=== PATIENT | female | born 1955 | race Caucasian/White ===

== ENCOUNTER 2017-06-06 03:45 | Emergency (ER) | payer OTHER ==
[2017-06-06 04:15] VITALS: BP 126/63; PULSE 67; TEMP 97.6; BMI 23.0
[2017-06-06] MEDS ORDERED: ACETAMINOPHEN 325 MG TABLET (FP) PO ONE (08:45)
[2017-06-06] MEDS ORDERED: ACETAMINOPHEN 325 MG TABLET (FP) ONE (08:48)
--- NOTE | 2017-06-06 09:05 | PDOC ---
History of Present Illness - General History Source: Patient - History of Present Illness Timing/Duration: other Severity: moderate <CubanFrancois - Last Filed: 06/06/17 11:42> <Camila Marquez - Last Filed: 06/06/17 11:51> - General Chief Complaint: Injury Stated Complaint: L ARM PAIN S/P FALL Time Seen by Provider: 06/06/17 08:27 Past History - Past Medical History COPD: No - Suicide/Smoking/Psychosocial Hx Smoking History: Never smoked Have you smoked in the past 12 months: No Information on smoking cessation initiated: No Hx Alcohol Use: No Drug/Substance Use Hx: No Substance Use Type: None <Francois Montero - Last Filed: 06/06/17 11:42> <Camila Marquez - Last Filed: 06/06/17 11:51> - Past Medical History Allergies/Adverse Reactions: Allergies Allergy/AdvReac Type Severity Reaction Status Date / Time No Known Allergies Allergy Verified 06/06/17 04:15 Home Medications: Ambulatory Orders NK [No Known Home Medication] 06/06/17 Review of Systems - Review of Systems Musculoskeletal: Yes: Joint Pain. No: Joint Swelling Integumentary: Yes: Bruising Neurological: No: Headache, Dizziness <Francois Montero - Last Filed: 06/06/17 11:42> *Physical Exam - Vital Signs Last Vital Signs Temp Pulse Resp BP Pulse Ox 97.6 F 67 18 126/63 100 06/06/17 04:12 06/06/17 04:12 06/06/17 04:12 06/06/17 04:12 06/06/17 04:12 - Physical Exam General Appearance: Yes: Appropriately Dressed, Mild Distress HEENT: positive: Normal Voice Neck: positive: Supple Respiratory/Chest: negative: Respiratory Distress Gastrointestinal/Abdominal: positive: Tender, Soft Extremity: positive: Tender (Possible mild deformity to left shoulder compared to right, with limited range of motion to joint, neurovascular intact, no snuffbox tenderness) Integumentary: positive: Dry, Warm Neurologic: positive: Fully Oriented, Alert, Normal Mood/Affect <Francois Montero - Last Filed: 06/06/17 11:42> - Vital Signs Last Vital Signs Temp Pulse Resp BP Pulse Ox 97.6 F 67 18 126/63 100 06/06/17 04:12 06/06/17 04:12 06/06/17 04:12 06/06/17 04:12 06/06/17 04:12 <Camila Marquez - Last Filed: 06/06/17 11:51> ED Treatment Course - RADIOLOGY Radiology Studies Ordered: Category Date Time Status HUMERUS-LEFT [RAD] Stat Radiology 06/06/17 08:38 Ordered SHOULDER-LEFT [RAD] Stat Radiology 06/06/17 08:37 Ordered - Medications Given in the ED: ED Medications Discontinued Medications Generic Name Dose Route Start Last Admin Trade Name Freq PRN Reason Stop Dose Admin Acetaminophen 1,000 mg 06/06/17 08:45 06/06/17 08:52 Tylenol - PO 06/06/17 08:46 1,000 mg ONCE ONE Administration <Francois Montero - Last Filed: 06/06/17 11:42> - Medications Given in the ED: ED Medications Discontinued Medications Generic Name Dose Route Start Last Admin Trade Name Freq PRN Reason Stop Dose Admin Acetaminophen 1,000 mg 06/06/17 08:45 06/06/17 08:52 Tylenol - PO 06/06/17 08:46 1,000 mg ONCE ONE Administration <Camila Marquez - Last Filed: 06/06/17 11:51> Medical Decision Making - Medical Decision Making 06/06/17 08:59 61 yo F, no sig hx, p/w L shoulder/thigh pain s/p fall. States she slipped and fell onto L side while shopping in [place] yesterday. Denies head injury, LOC, CARUSO, n/v. Not on blood thinners. Able to ambulate. Taking alleve w/ some relief See exam LUE injury Possible mild deformity to L shoulder joint compared to R w/ LROM -XR r/o fx/dislocation -pain control -sling 06/06/17 09:44 Per radiology, possible posterior dislocation on x-ray. CAT scan pending 06/06/17 11:36 CT neg for fracture/dislocation per radiology. DC with sling, pain control and orthopedic follow-up <Francois Montero Last Filed: 06/06/17 11:42> *DC/Admit/Observation/Transfer <Francois Montero - Last Filed: 06/06/17 11:42> - Attestations Physician Attestion: I reviewed the case with the mid-level practitioner and agree with the mid- level practitioner's assessment, diagnosis and disposition. <Camila Marquez - Last Filed: 06/06/17 11:51> Diagnosis at time of Disposition: Thigh contusion Qualifiers: Encounter type: initial encounter Laterality: left Qualified Code(s): S70.12XA - Contusion of left thigh, initial encounter Shoulder sprain Qualifiers: Encounter type: initial encounter Shoulder sprain type: unspecified sprain Laterality: left Qualified Code(s): S43.402A - Unspecified sprain of left shoulder joint, initial encounter - Discharge Dispostion Disposition: HOME Condition at time of disposition: Improved - Referrals Referrals: Emily Alegre MD [Primary Care Provider] - - Patient Instructions Printed Discharge Instructions: Shoulder Sprain Additional Instructions: Your CAT scan did not show any fracture or dislocation. At this time, you are being treated for a sprain. Use sling for comfort. Continue taking Motrin or Aleve as needed for pain. If symptoms continue after 2 weeks, please follow-up with Dr. Ivy of orthopedics - Post Discharge Activity
== END 2017-06-06 11:59 | disposition home or self-care (01) ==
LOC: JER 03:45
DX: S43.402A Unspecified sprain of left shoulder joint, initial encounter (principal); S70.12XA Contusion of left thigh, initial encounter; W18.39XA Other fall on same level, initial encounter; Y93.89 Activity, other specified; Y92.512 Supermarket, store or market as the place of occurrence of the external cause; Y99.8 Other external cause status
CPT/HCPCS: 73030-TC-LT-FY; 73060-TC-LT-FY; 73200-TC-RT; 99283-25